=== PATIENT | female | born 1965 | race African-American/Black ===

== ENCOUNTER 2016-06-04 22:31 | Emergency (ER) | payer OTHER ==
[2016-06-04 22:42] VITALS: BMI 37.1
--- NOTE | 2016-06-04 22:49 | PDOC ---
History of Present Illness - General History Source: Patient - History of Present Illness Initial Comments: 06/04/16 23:34 The patient is a 50 year old female with a significant past medical history of asthma, sinus polyps, anxiety, and HTN who presents to the emergency department with complaints of SOB, chest pain, and cough due to asthma. She denies fever, chills, abdominal pain, nausea, vomiting, diarrhea, headache. (-) flu shot ALL:aspirin, ibuprofen <Elaine Flores - Last Filed: 06/04/16 23:33> <Sadia Bhatt - Last Filed: 06/06/16 01:11> - General Chief Complaint: Shortness of Breath Stated Complaint: ASTHMA Time Seen by Provider: 06/04/16 22:49 Past History <Elaine Flores - Last Filed: 06/04/16 23:33> - Past Medical History Asthma: Yes HTN: Yes - Immunization History Immunization Up to Date: Yes - Psycho/Social/Smoking Cessation Hx Anxiety: No Suicidal Ideation: No Smoking Status: Yes Smoking History: Unknown if ever smoked Number of Cigarettes Smoked Daily: 5 Hx Alcohol Use: No Drug/Substance Use Hx: No Substance Use Type: None <Sadia Bhatt - Last Filed: 06/06/16 01:11> - Past Medical History Allergies/Adverse Reactions: Allergies Allergy/AdvReac Type Severity Reaction Status Date / Time aspirin Allergy Verified 10/30/15 20:43 ibuprofen Allergy Verified 10/30/15 20:43 Home Medications: Ambulatory Orders Amlodipine Besylate 5 mg PO DAILY 10/30/15 Losartan/Hydrochlorothiazide [Losartan-Hctz 100-25 mg Tab] 1 tab PO DAILY Nebivolol [Bystolic -] 5 mg PO DAILY 10/30/15 Albuterol Sulfate Inhaler - [Ventolin Hfa Inhaler -] 1 - 2 inh PO QID 06/04/16 Methylprednisolone [Medrol Dose Erik] 4 mg PO ASDIR #21 tablet 06/05/16 Prednisone [Deltasone -] 2 tab PO DAILY #7 tablet 06/05/16 Review of Systems - Review of Systems Able to Perform ROS?: Yes Comments:: 06/04/16 23:34 GENERAL/CONSTITUTIONAL: No: fever, chills, weakness, loss of appetite. HEAD, EYES, EARS, NOSE AND THROAT: No: change in vision, ear pain, discharge, sore throat, throat swelling. CARDIOVASCULAR:Yes: chest pain No: lightheadedness, palpitations, syncope RESPIRATORY:Yes: cough, SOB No: hemoptysis, stridor. GASTROINTESTINAL: No: nausea, vomiting, abdominal cramping, diarrhea, rectal bleeding, constipation. GENITOURINARY: No: dysuria, hematuria, frequency, urgency, flank pain. MUSCULOSKELETAL: No: back pain, neck pain, joint pain, muscle swelling or pain SKIN AND BREASTS: No: lesions, pallor, rash or easy bruising. NEUROLOGIC: No: headache, vertigo, paresthesias, weakness ENDOCRINE: No: unexplained weight gain or loss HEMATOLOGIC/LYMPHATIC: No: anemia, easy bleeding, swelling nodes All Other Systems: Reviewed and Negative <Elaine Flores - Last Filed: 06/04/16 23:33> *Physical Exam - Vital Signs Last Vital Signs Temp Pulse Resp BP Pulse Ox 98.1 F 80 20 125/72 100 06/04/16 22:37 06/04/16 23:20 06/04/16 23:20 06/04/16 23:20 06/04/16 23:20 - Physical Exam Comments: 06/04/16 23:35 GENERAL:+pt is in respiratory distress. HEAD: Normal with no signs of trauma. EYES: PERRLA, EOMI, sclera anicteric, conjunctiva clear. ENT: Ears normal, nares patent, oropharynx clear without exudates. Moist mucous membranes. NECK: Normal range of motion, supple without lymphadenopathy, JVD, or masses. LUNGS: +wheezing. Breath sounds equal, clear to auscultation bilaterally. no crackles. HEART:Regular rate and rhythm, normal S1 and S2 without murmur, rub or gallop. ABDOMEN: Soft, nontender, normoactive bowel sounds. No guarding, no rebound. EXTREMITIES: Normal range of motion, no edema. No clubbing or cyanosis. No erythema, or tenderness. NEUROLOGICAL: Cranial nerves II through XII grossly intact. Normal speech. No focal neurological deficits. MUSCULOSKELETAL: Back non-tender to palpation, no CVA tenderness SKIN: Warm, Dry, normal turgor, no rashes or lesions noted. <Elaine Flores - Last Filed: 06/04/16 23:33> - Vital Signs Last Vital Signs Temp Pulse Resp BP Pulse Ox 98.1 F 109 H 20 184/79 98 06/04/16 22:37 06/04/16 22:37 06/04/16 22:37 06/04/16 22:37 06/04/16 22:43 <Sadia Bhatt - Last Filed: 06/06/16 01:11> ED Treatment Course - Medications Given in the ED: ED Medications Discontinued Medications Generic Name Dose Route Start Last Admin Trade Name Fany PRN Reason Stop Dose Admin Methylprednisolone Sodium Succinate 125 mg 06/04/16 23:00 06/04/16 23:19 Solu-Medrol - IVPB 06/04/16 23:01 125 mg ONCE ONE Administration Nitroglycerin 1 inch 06/04/16 23:00 06/04/16 23:19 Nitro-Bid 2% Paste - TD 06/04/16 23:01 1 inch ONCE ONE Administration Oxycodone/Acetaminophen 2 combo 06/04/16 23:00 06/04/16 23:19 Percocet 5/325 - PO 06/04/16 23:01 2 combo ONCE ONE Administration <Elaine Flores - Last Filed: 06/04/16 23:33> Medical Decision Making - Medical Decision Making 06/05/16 00:18 Patient Name: Yumiko Child THIS IS A PRELIMINARYREPORT FROM IMAGING EXERCISE PHYSIOLOGY PROFESSOR EXAM: X-ray chest IMAGES: 3 INDICATION: Shortness of breath and cough DATE OF SERVICE: 2016-06-04 23:31:42.0 COMPARISON: none FINDINGS: The cardiomediastinal silhouette is normal. The lungs are clear. The bones and soft tissues are normal. IMPRESSION: Normal chest. 06/06/16 01:09 Pt comes with an asthma exacerbation. SHe is staying with a friend for the weekend and states that her albuterol inhaler isn't working; her nebulizer machine is at her home [facility]. Pt has no fever or chills. She was treated with mag and terbutaline. Flu negative and CXR normal. She is feeling better and she will be sent home. <Sadia Bhatt - Last Filed: 06/06/16 01:11> *DC/Admit/Observation/Transfer - Attestations Scribe Attestion: 06/04/16 23:35 Documentation prepared by Elaine Flores, acting as medical affairs manager for Sadia Bhatt MD. <Elaine Flores - Last Filed: 06/04/16 23:33> <Sadia Bhatt - Last Filed: 06/06/16 01:11> Diagnosis at time of Disposition: Viral URI with cough - Discharge Dispostion Disposition: HOME Condition at time of disposition: Stable - Prescriptions Prescriptions: Prednisone [Deltasone -] 2 tab PO DAILY #7 tablet Methylprednisolone [Medrol Dose Erik] 4 mg PO ASDIR #21 tablet
[2016-06-04] MEDS ORDERED: OXYCODONE/APAP 5/325MG COMBO TABLET PO ONE (23:00)
[2016-06-04] MEDS ORDERED: methylPREDNISolone NA SUCC 125 MG/2 ML VIAL IVPB ONE (23:00)
[2016-06-04] MEDS ORDERED: NITROGLYCERIN 2% OINTMENT - 1GM PACKET TD ONE ×2 (23:00→23:05)
[2016-06-04] MEDS ORDERED: MAGNESIUM SULF 50% (8.12 MEQ/2 ML-1 GM VIAL) ONE ×2 (23:01→23:02)
[2016-06-04] MEDS ORDERED: methylPREDNISolone NA SUCC 125 MG/2 ML VIAL ONE ×2 (23:02→23:05)
[2016-06-04] MEDS ORDERED: OXYCODONE/APAP 5/325MG COMBO TABLET ONE (23:05)
[2016-06-05] MEDS ORDERED: MAGNESIUM SULF 50% (8.12 MEQ/2 ML-1 GM VIAL) IVPB ONE (01:11)
[2016-06-05] MEDS ORDERED: TERBUTALINE SULFATE 1 MG/1 ML VIAL SQ ONE ×2 (01:11→01:22)
[2016-06-05 01:18] VITALS: BP 142/76; PULSE 76; TEMP 97.9
[2016-06-05] MEDS ORDERED: MAGNESIUM SULF 50% (8.12 MEQ/2 ML-1 GM VIAL) ONE (01:22)
--- NOTE | 2016-06-05 09:32 | EKG ---
Test Reason : Blood Pressure : / mmHG Vent. Rate : 074 BPM Atrial Rate : 074 BPM P-R Int : 164 ms QRS Dur : 098 ms QT Int : 418 ms P-R-T Axes : 040 -04 006 degrees QTc Int : 463 ms NORMAL SINUS RHYTHM INCOMPLETE RIGHT BUNDLE BRANCH BLOCK CANNOT RULE OUT SEPTAL INFARCT , AGE UNDETERMINED ABNORMAL ECG Confirmed by MARCY CONNER MD ([id number]) on 06/05/2016 9:31:53 AM Referred By: Confirmed By:MARCY CONNER MD
== END 2016-06-05 02:11 | disposition home or self-care (01) ==
LOC: JER 22:31
PROC: 3E0333Z Introduction of Anti-inflammatory into Peripheral Vein, Percutaneous Approach (ICD-10-PCS; principal; 2016-06-04)
PROC: 3E033GC Introduction of Other Therapeutic Substance into Peripheral Vein, Percutaneous Approach (ICD-10-PCS; 2016-06-04)
PROC: 3E023GC Introduction of Other Therapeutic Substance into Muscle, Percutaneous Approach (ICD-10-PCS; 2016-06-04)
DX: J06.9 Acute upper respiratory infection, unspecified (principal); B97.89 Other viral agents as the cause of diseases classified elsewhere; I10 Essential (primary) hypertension; J45.909 Unspecified asthma, uncomplicated
CPT/HCPCS: 71020-TC; 87804; 93005; 93010; 96372; 96374; 96375; 99285-25

== ENCOUNTER 2016-06-24 19:25 | Emergency (ER) | payer OTHER ==
[2016-06-24] MEDS ORDERED: predniSONE 20 MG TABLET (UD) PO ONE (19:29)
[2016-06-24] MEDS: ALBUTEROL SO4 2.5/IPRATROPIUM 0.5 INH SOL 3 ML VIAL.NEB. NEB SCH ×3 (19:30→20:10)
--- NOTE | 2016-06-24 19:33 | PDOC ---
History of Present Illness - General History Source: Patient, Old Records Exam Limitations: No Limitations - History of Present Illness Initial Comments: 06/24/16 20:06 The patient is a 50 year old female with a significant past medical history of asthma, HTN, and nasal polyps who presents to the emergency department today for further evaluation of exacerbated asthma since earlier today. The patient reports that she does not normally experience asthma attack but this is her 2nd in 3 weeks. The patient states that she does try to treat symptoms at home and she does not take aspirin because it triggers her nasal polyps. The patient is able to speak in full sentences. The patient denies fever, chills, and sweats. The patient denies nausea, vomiting, and diarrhea. The patient denies chest pain, cough, and shortness of breath. PAST MEDICAL HISTORY: No significant history reported PAST SURGICAL HISTORY: No significant history reported FAMILY HISTORY: No pertinent history reported SOCIAL HISTORY: None reported MEDICATIONS: Reviewed ALLERGIES: As per nursing notes <Rajesh Lai - Last Filed: 06/24/16 20:10> - General History Source: Patient Exam Limitations: No Limitations <Ethan Elmore - Last Filed: 06/24/16 20:27> - General Chief Complaint: Respiratory Stated Complaint: DIFF BREATHING Time Seen by Provider: 06/24/16 19:29 Past History <Rajesh Lai - Last Filed: 06/24/16 20:10> - Past Medical History Asthma: Yes HTN: Yes - Immunization History Immunization Up to Date: Yes - Psycho/Social/Smoking Cessation Hx Anxiety: No Suicidal Ideation: No Smoking Status: Yes Smoking History: Unknown if ever smoked Number of Cigarettes Smoked Daily: 5 Hx Alcohol Use: No Drug/Substance Use Hx: No Substance Use Type: None <Ethan Elmore - Last Filed: 06/24/16 20:27> - Past Medical History Allergies/Adverse Reactions: Allergies Allergy/AdvReac Type Severity Reaction Status Date / Time aspirin Allergy Verified 06/24/16 19:27 ibuprofen Allergy Verified 06/24/16 19:27 Home Medications: Ambulatory Orders Amlodipine Besylate 5 mg PO DAILY 10/30/15 Losartan/Hydrochlorothiazide [Losartan-Hctz 100-25 mg Tab] 1 tab PO DAILY Nebivolol [Bystolic -] 5 mg PO DAILY 06/24/16 Albuterol Sulfate Inhaler - [Ventolin Hfa Inhaler -] 1 - 2 inh PO QID 06/04/16 Prednisone [Deltasone -] 2 tab PO DAILY #7 tablet 06/05/16 Review of Systems - Review of Systems Able to Perform ROS?: Yes Respiratory: Yes: Symptoms reported, See HPI, Shortness of Breath, Other ( exacerbated asthma) <Rajesh Lai - Last Filed: 06/24/16 20:10> *Physical Exam - Vital Signs Last Vital Signs Temp Pulse Resp BP Pulse Ox 98.1 F 98 H 24 169/89 95 06/24/16 19:25 06/24/16 19:25 06/24/16 19:25 06/24/16 19:25 06/24/16 19:25 <Rajesh Lia - Last Filed: 06/24/16 20:10> - Physical Exam General Appearance: Yes: Nourished, Appropriately Dressed. No: Apparent Distress HEENT: positive: Normal ENT Inspection Neck: positive: Supple Respiratory/Chest: positive: Wheezing, Other (GOOD BILATERAL AIR ENTRY). negative: Chest Tender, Respiratory Distress Cardiovascular: positive: Regular Rhythm, Regular Rate Extremity: positive: Normal Capillary Refill, Normal Inspection, Normal Range of Motion Neurologic: positive: Fully Oriented, Alert, Normal Mood/Affect, Normal Response , Motor Strength 5/5 <Ethan Elmore - Last Filed: 06/24/16 20:27> ED Treatment Course - Medications Given in the ED: ED Medications Discontinued Medications Generic Name Dose Route Start Last Admin Trade Name Freq PRN Reason Stop Dose Admin Prednisone 60 mg 06/24/16 19:29 06/24/16 19:38 Deltasone - PO 06/24/16 19:30 60 mg ONCE ONE Administration <Rajesh Lai - Last Filed: 06/24/16 20:10> Progress Note - Progress Note Progress Note: FEELS BETTER OCCASIONAL COUGH WILL D/C ON STEROIDS <Ethan Elmore - Last Filed: 06/24/16 20:27> *DC/Admit/Observation/Transfer - Attestations Scribe Attestion: 06/24/16 20:10 Documentation prepared by Rajesh Lai, acting as medical care evaluation specialist for Ethan Elmore MD. <Rajesh Lai - Last Filed: 06/24/16 20:10> <Ethan Elmore - Last Filed: 06/24/16 20:27> Diagnosis at time of Disposition: Exacerbation of asthma - Discharge Dispostion Disposition: HOME Condition at time of disposition: Improved - Patient Instructions Additional Instructions: PLENTY OF FLUIDS (WATER/GATORADE) MOTRIN/TYLENOL IF FEVER CONTINUE ALBUTEROL NEEDED REST RETURN IF WORSENING IN SPITE NEBULIZATIONS SEE YOUR DOCTOR PLANNED ON MONDAY
[2016-06-24 19:34] VITALS: TEMP 98.1
[2016-06-24 19:36] VITALS: BMI 37.9
[2016-06-24] MEDS ORDERED: predniSONE 20 MG TABLET (UD) ONE (19:37)
[2016-06-24] MEDS ORDERED: ALBUTEROL SO4 2.5/IPRATROPIUM 0.5 INH SOL 3 ML VIAL.NEB. NEB ONE (19:41)
[2016-06-24 20:38] VITALS: BP 142/76; PULSE 85
== END 2016-06-24 20:38 | disposition home or self-care (01) ==
LOC: FER 19:25
PROC: 3E0F7GC Introduction of Other Therapeutic Substance into Respiratory Tract, Via Natural or Artificial Opening (ICD-10-PCS; principal; 2016-06-24)
DX: J45.901 Unspecified asthma with (acute) exacerbation (principal)
CPT/HCPCS: 94640; 99283-25